=== PATIENT | female | born 1995 | race Caucasian/White ===

== ENCOUNTER → 2016-07-10 10:35 | Outpatient (CLI) | payer BC | END | disposition home or self-care (01) | LOC: D.US 10:35 | DX: N93.8 Other specified abnormal uterine and vaginal bleeding (principal) ==

== ENCOUNTER → 2020-01-05 09:12 | Outpatient (CLI) | payer OTHER | END | disposition home or self-care (01) | LOC: D.US 01-02 11:00 | PROVIDERS: ATTEND Student in an Organized Health Care Education/Training Program | DX: N63.22 Unspecified lump in the left breast, upper inner quadrant (principal) ==